=== PATIENT | female | born 1965 | race Caucasian/White ===

== ENCOUNTER 2016-09-30 11:44 | Emergency (ER) | payer BC ==
[~2016-09-30] VITALS: Ht 180.3 cm; Wt 72.5 kg
[~2016-09-30 11:44] MED LIST: OMEP20CA9
[2016-09-30 11:50] VITALS: Ht 180.3 cm; Wt 72.5 kg
[2016-09-30] MEDS ORDERED: KETOROLAC 15 MG INJ IM STA (14:42)
[2016-09-30] MEDS ORDERED: DIAZEPAM 5 MG TAB PO ONE (15:00)
--- NOTE | 2016-09-30 16:05 | ERD ---
ER Documentation Chief Complaint Date/Time DATE: 09/30/16 TIME: 15:55 Chief Complaint HEADACHE, PRESSURE IN BILATERAL EAR X5 DAYS HPI Pleasant 51-year-old female presents to emergency department with complaint of intermittent temporal headache, jaw pain, bilateral ear pain. Patient reports pain has been intermittent up until 3-4 days ago after dental intervention. Patient states that she is having work done on the left side of her lower jaw with cavity repair and crown placement. Patient is due to see her dentist again on the of this month. Reports that for the last 3-4 days pain has been constant not responding to Tylenol or Motrin. Patient denies history of coronary artery disease, denies chest pain, shortness of breath, diabetes, palpitations or dizziness.Patient denies history of TMJ but reports dentist had asked her the same question. She denies pain with chewing, and patient's son who is in exam room with mother for translation reports that she chews gum today pain is 8/10 on pain scale. ROS All systems reviewed and are negative except as per history of present illness. Medications Home Meds Active Scripts Naproxen* (Naprosyn*) 500 Mg Tablet, 500 MG PO BID Y for PAIN AND/OR INFLAMMATION, #30 TAB Prov:JOSSELINCHARLIEKIMI 09/30/16 Reported Medications Omeprazole* (Prilosec*) 20 Mg Capsule. 06/10/10 Allergies Allergies: Coded Allergies: No Known Allergy (Unverified , 10/24/14) PMhx/Soc History of Surgery: Yes (CHOLECYSTECTOMY, CSECTION X2) Anesthesia Reaction: No Hx Neurological Disorder: No Hx Respiratory Disorders: No Hx Cardiac Disorders: No Hx Psychiatric Problems: No Hx Miscellaneous Medical Probl: Yes (arthritis, knee problems) Hx Alcohol Use: No Hx Substance Use: No Hx Tobacco Use: No Smoking Status: Never smoker Physical Exam Vitals Vital Signs Date Time Temp Pulse Resp B/P Pulse Ox O2 Delivery O2 Flow Rate FiO2 09/30/16 16:18 98.1 72 18 127/69 98 Room Air 09/30/16 11:50 97.4 76 17 169/84 98 Vital signs stable, nursing notes reviewed Physical Exam Const: No acute distress Head: Atraumatic Eyes: Normal Conjunctiva ENT: Bilateral tympanic membranes dull, translucent, no evidence of air- fluid level. Nasal mucosa moist, terminates +3 with clear mucus. Temporomandibular joint tender to palpation, no crepitus with opening and closing mouth but palpable malalignment. Neck: Full range of motion. With rotation, lateral bending, flexion and extension Resp: Clear to auscultation bilaterally Cardio: Regular rate and rhythm, no murmurs S1, S2, no S4, S5 Abd: Skin: Back: Ext: Neur: Awake and alert Psych: Normal Mood and Affect Results 24 hrs Current Medications Medications (Trade) Dose Ordered Sig/Ayla Route PRN Reason Start Time Stop Time Status Last Admin Dose Admin Ketorolac Tromethamine (Toradol) 15 mg ONCE STAT IM 09/30/16 14:42 09/30/16 14:45 DC 09/30/16 14:51 Diazepam (Valium) 5 mg ONCE ONCE PO 09/30/16 15:00 09/30/16 15:01 DC 09/30/16 14:51 Procedures/MDM EKG: Rate/Rhythm: Normal Sinus Rhythm with sinus arrhythmia at ventricular rate of 74 bpm] QRS, ST, T-waves: No changes consistent w/ acute ischemia Incomplete right bundle branch blocks. Impression: No evidence of ischemia No evidence of ischemia or ST changes. Pleasant 51-year-old female presents to emergency department today for evaluation of ear pain, headache, and jaw pain. Patient history includes recent dental work. No history of TMJ, low, without troponins, EKG shows normal sinus rhythm with sinus arrhythmia and incomplete right bundle branch block. Patient has no past ECGs to compare to. Without chest pain, shortness of breath, dyspnea or dizziness. AMI is not likely. Physical exam findings are consistent with temporomandibular joint disease after recent dental work. Patient was treated for pain with Toradol and Valium and reassessed after 30 minutes with effective decrease in symptoms. I feel the patient is stable for discharge at this time. I have discussed results, examination findings, the treatment plan with the patient and family present prior to discharge. Indications for emergent reevaluation, chest pain, shortness of breath, dizziness, palpitations, nausea or vomiting. Side effects of medication were also discussed. All questions were answered. Patient verbalizes understanding and agrees with plan of care. Departure Diagnosis: Primary Impression: Temporomandibular joint (TMJ) pain Laterality: bilateral Qualified Code: M26.623 - Bilateral temporomandibular joint pain Condition: Good Patient Instructions: Helping Your Temporomandibular Joint (TMJ) Heal, Tmj Syndrome Additional Instructions: Thank you for for coming to [facility] for your care today. Please ask your nurse or provider if you have questions about your care today and do not leave until all your questions have been answered. Please use any medications given as directed and follow-up with your doctor (or the doctor you were referred to) in the next 2-3 days. If you do not have a primary care doctor you may follow up at the [facility] (listed below). You may also use motrin and tylenol as needed for fever and/or pain unless instructed otherwise by your provider or nurse. Indications for more urgent follow-up have been discussed, but you may return to the Emergency Department at ANY time for any worrisome or worsening symptoms. If you have abdominal pain, please know that no test or exam you received is perfect and you should follow up within 8 hours for continued pain. If you had any imaging studies today, such as an X-Ray or CT Scan, these studies will be reviewed later by a radiologist. You will be called if there are important findings that were not identified today, so make sure the contact information you provided at registration is correct. If you received any narcotic pain control medicine today, such as Vicodin, Morphine or Dilaudid, your coordination and judgment may be affected for a number of hours. Please do not drive or operate heavy machinery, and you may want someone to assist you at home. If you were given a prescription for narcotic medication, be aware that it is very addictive- use sparingly and only if necessary. KIMI SCHWAB Sep 30, 2016 16:05
[2016-09-30] MEDS ORDERED: NAPR-260 PO (16:06)
[2016-09-30 16:18] VITALS: BP 127/69; PULSE 72; RESP 18; TEMP 98.1
== END 2016-09-30 16:18 | disposition home or self-care (01) ==
LOC: FTE 11:44
DX: M26.623 Arthralgia of bilateral temporomandibular joint (principal); I49.9 Cardiac arrhythmia, unspecified
CPT/HCPCS: 93005; 96372; J1885; Z7502; Z7610

== ENCOUNTER 2017-08-21 07:27 | Day surgery (SDC) | END 2017-08-21 11:15 | disposition home or self-care (01) ==